=== PATIENT | male | born 1960 | race Caucasian/White ===

== ENCOUNTER 2020-07-20 08:01 | Emergency (ER) | payer MEDICARE, OTHER ==
[~2020-07-20] VITALS: Ht 175 cm; Wt 68.0 kg
--- NOTE | 2020-07-20 08:38 | ED General ---
General Chief Complaint: General Problems/Pain Stated Complaint: FOOT PAIN Nursing Triage Note: Patient brought to ER room 7 via wheelchair after falling in waiting room. PT states he is here today for chronic back and hip pain that has been present since March 2020. He has seen Dr Mcnally @ [facility] for this pain but is not scheduled for surgery. He states he heard good things about this hospital and wants this hospital to take care of him. Patient states he drove from [place] today. He states the pain in his left hip is worse today and he has difficulty walking because the right foot feels like the toes drop on it and it catches on the floor. He has had difficulty sleeping at night due to the pain. He has had 3 steriods shots in his back with no relief. Patient denies any additional injuries from the fall and denies striking his head. Nursing Sepsis Screen: No Definite Risk Source of Information: Patient Exam Limitations: No Limitations History of Present Illness Date Seen by Provider: July 20, 2020 Time Seen by Provider: 08:17 Initial Comments Here with complaint of chronic hip and back pain. Came to this hospital for second opinion after seeing Dr. Mcnally. States he has had injections in his back and those have not helped. Has necrosis of the left hip and pretty significant pain in the right hip. On the way in the door, he tripped over his right foot and fell to the floor on his hip. Does not think he broke anything and he is able to stand with assistance. His main concern was getting second opinion or getting something fixed here. His secondary concern is he is only prescribed tramadol 50 mg twice daily for pain. Denies bowel or bladder incontinence. Denies fever chills. Denies nausea or vomiting. Denies hitting his head with the fall or other injuries. Timing/Duration: Getting Worse, Other (Chronic for months) Severity: Moderate Associated Systoms: No Cough, No Fever/Chills, No Headaches, No Nausea/Vomiting, No Shortness of Air, No Weakness Allergies and Home Medications Allergies Coded Allergies: No Known Drug Allergies (Unverified , 07/20/20) Home Medications Gabapentin 600 Mg Tablet, 600 MG PO TID, (Reported) Last Action: New Order Tramadol HCl 50 Mg Tablet, 50 MG PO BID, (Reported) Last Action: New Order Patient Home Medication List Home Medication List Reviewed: Yes Review of Systems Review of Systems Constitutional: see HPI EENTM: No nose congestion, No throat pain Respiratory: No cough, No short of breath Cardiovascular: No chest pain, No edema Gastrointestinal: No abdominal pain, No nausea, No vomiting Genitourinary: no symptoms reported Musculoskeletal: see HPI, back pain, joint pain, muscle pain; No neck pain Skin: No see HPI, No change in color Psychiatric/Neurological: Numbness (Bilateral feet with left greater than right now, which is getting worse.), Weakness (Right foot weakness that has been chronic) All Other Systems Reviewed Negative Unless Noted: Yes Past Sjplmxa-Cxfxak-Jxojfs Hx Past Med/Social Hx: Reviewed Nursing Past Med/Soc Hx Patient Social History Alcohol Use: Regular Use Alcohol Beverage of Choice: Beer Drug of Choice: marijuana Smoking Status: Former Smoker Type Used: Cigarettes Former Smoker, Quit: July 08, 2020 Recent Infectious Disease Expo: No Recent Hopitalizations: No Seasonal Allergies Seasonal Allergies: No Past Medical History Surgeries: Yes (back and hip surgeries, hernia repair, lung surgery) Appendectomy, Orthopedic Respiratory: Yes COPD Cardiac: No Neurological: No Genitourinary: Yes (Prostate Cancer) Gastrointestinal: No Musculoskeletal: Yes Back Injury, Chronic Back Pain Endocrine: No HEENT: No Cancer: Yes Prostate Did You Recieve Any Treatments: Yes What Type of Treatment Did You: Radiation Psychosocial: No Integumentary: No Blood Disorders: No Family Medical History Reviewed Nursing Family Hx Physical Exam Vital Signs Vital Signs - First Documented 07/20/20 08:01 Temp 34.9 Pulse 80 Resp 18 B/P (MAP) 162/97 (118) Pulse Ox 97 O2 Delivery Room Air Capillary Refill : Less Than 3 Seconds Height, Weight, BMI Height: '" Weight: lbs. oz. kg; 22.00 BMI Method: General Appearance: Chronically ill, Mild Distress HEENT: PERRL/EOMI, Pharynx Normal Neck: Normal Inspection Respiratory: Lungs Clear, Normal Breath Sounds Cardiovascular: No Murmur, Tachycardia Gastrointestinal: Non Tender, Soft Back: Normal Inspection, No CVA Tenderness, No Vertebral Tenderness Extremity: No Calf Tenderness, No Pedal Edema, Pelvis Stable, Other (He is able to flex and extend at the hip and internal and external rotate. No limitations on range of motion although states that he does have pain chronically when moving both hips.) Neurologic/Psychiatric: Alert, Oriented x3 Skin: Normal Color, Warm/Dry Progress/Results/Core Measures Suspected Sepsis Recent Fever Within 48 Hours: No Infection Criteria Present: None New/Unexplained Altered Menta: No Sepsis Screen: No Definite Risk SIRS Temperature: Pulse: 80 Respiratory Rate: 18 Blood Pressure 162 /97 Mean: 118 Results/Orders Lab Results Laboratory Tests Test 07/20/20 08:10 Range/Units Glucometer 100 70-110 MG/DL My Orders Orders - MARVA SOTO MD Pelvis/Mychal Hips 5> Views (07/20/20 08:30) Ct Lumbar Spine Wo (07/20/20 08:30) Hydrocodone/Apap 5/325 Tablet (Lortab 5 (07/20/20 09:30) Ketorolac Injection (Toradol Injection) (07/20/20 10:19) Medications Given in ED Current Medications Medications Dose Ordered Sig/Bam Route Start Time Stop Time Status Last Admin Dose Admin Acetaminophen/ Hydrocodone Bitart 1 ea ONCE ONCE PO 07/20/20 09:30 07/20/20 09:31 DC 07/20/20 09:38 1 EA Vital Signs/I&O 07/20/20 08:01 Temp 34.9 Pulse 80 Resp 18 B/P (MAP) 162/97 (118) Pulse Ox 97 O2 Delivery Room Air Capillary Refill : Less Than 3 Seconds Blood Pressure Mean: 118 Point of Care Testing Finger Stick Blood Glucose: 100 Progress Note : Progress Note Seen and evaluated. IV, labs, CT lumbar spine, pelvis and bilateral hip x-rays ordered. Monitor patient. 1020: Toradol 60 mg IM ordered for persistent pain. CTA and x-rays reviewed. No acute findings require admission or transfer currently. Does have chronic problems that will need to be addressed and can be addressed with his primary care provider and orthopedic surgeon. He did receive hydrocodone 5/325 1 tablet p.o. States it is not helping the pain a lot right now but we will add the Toradol. Discharged home with return precautions. Patient verbalized understanding of instructions and agreement with plan. Diagnostic Imaging Diagonstic Imaging: CT Plain Films/CT/US/NM/MRI: other Comments NAME: JOSH SEBASTIAN [facility] REC#: [id number] PT STATUS: REG ER : 1960 PHYSICIAN: MARVA SOTO MD ADMIT DATE: 07/20/20/ER Draft Date of Exam:07/20/20 CT LUMBAR SPINE WO PROCEDURE: CT lumbar spine without contrast. TECHNIQUE: Multiple contiguous axial images were obtained through the lumbar spine without the use of intravenous contrast. Sagittal and coronal reformations were then performed. Auto Exposure Controls were utilized during the CT exam to meet ALARA standards for radiation dose reduction. INDICATION: Fall, low back pain COMPARISON: None FINDINGS: Alignment of the lumbar spine appears normal. There is a compression deformity of L1 with about 50% height loss anteriorly and no retropulsion. Given the matching contour along the inferior endplate of T12 this is thought to be a chronic finding. There is marked facet arthropathy in the lower lumbar spine. Disc spaces are generally well preserved for age. This does appear to cause foraminal stenosis at L4-L5 and L5-S1 on the right, as well as stenosis from L2-L3 down to L5-S1 on the left. No bony fragments or hyperdense fluid collections are identified. There are bridging osteophytes of the sacroiliac joints bilaterally. The urinary bladder is partially seen but appears distended. IMPRESSION: 1. Compression deformity of the L1 vertebral body with about 50% height loss. This appears chronic rather than acute. 2. Degenerative changes in the lumbar spine causing multilevel foraminal stenosis. Dictated on workstation # [id number] Dict: 07/20/20 0855 Trans: 07/20/20 0908 JIM [id number] Interpreted by: ELIAZAR GUZMAN MD Electronically signed by: Diagonstic Imaging: Xray Plain Films/CT/US/NM/MRI: pelvis, hip Comments [facility] [place] NAME: JOSH SEBASTIAN Julian [facility] REC#: [id number] PT STATUS: REG ER : 1960 PHYSICIAN: MARVA SOTO MD ADMIT DATE: 07/20/20/ER Draft Date of Exam:07/20/20 PELVIS/MYCHAL HIPS 5> VIEWS History: Pelvic pain TECHNIQUE: Frontal view of the pelvis. Frontal and lateral views of the bilateral hips COMPARISON: None FINDINGS: There is diffuse osteopenia. There is internal fixation of the proximal right femur without hardware complication seen. There are moderate degenerative changes in the right hip and mild degenerative changes in the left hip. The femoral heads are well-seated in the acetabula bilaterally. Multiple phleboliths are noted. There are degenerative changes in the lower lumbar spine. There is some loss of the sacroiliac joint space, thought to represent bridging osteophytes. IMPRESSION: 1. No acute osseous abnormality is seen in the pelvis or bilateral hips. 2. Degenerative changes in the bilateral hip joints. 3. Internal fixation of the proximal right femur with no hardware complication seen. Dictated on workstation # [id number] Dict: 07/20/20 0900 Trans: 07/20/20 0913 [facility] [id number] Interpreted by: ELIAZAR GUZMAN MD Electronically signed by: Departure Impression Primary Impression: Degenerative joint disease of both hips Qualified Codes: M16.0 - Bilateral primary osteoarthritis of hip Additional Impression: Degenerative joint disease (DJD) of lumbar spine Qualified Codes: M47.816 - Spondylosis without myelopathy or radiculopathy, lumbar region Disposition: HOME, SELF-CARE Condition: Stable Departure-Patient Inst. Decision time for Depature: 10:27 Referrals: NETTIE MCNALLY MD Patient Instructions: Low Back Pain (DC), Degenerative Disc Disease (DC), Osteoarthritis (DC) Add. Discharge Instructions: All discharge instructions reviewed with patient and/or family. Voiced understanding. Continue ibuprofen 40 mg every 8 hours as needed for pain. Take other pain medications as prescribed. Follow-up with Dr. Mcnally for recheck and further evaluation. Call his office on Wednesday morning for appointment. Return for worse pain, weakness, numbness between your legs, difficulty with walking or going to the bathroom or other concerns as needed. Scripts Hydrocodone Bit/Acetaminophen (HYDROcodone/APAP 5 MG/325 MG TAB) 1 Tab Tab 1 TAB PO Q6H for Pain, #8 TAB 0 Refills Prov: MARVA SOTO MD 07/20/20 MARVA SOTO MD July 20, 2020 08:38
[2020-07-20] MEDS ORDERED: GBPN600T PO (08:43)
[2020-07-20] MEDS ORDERED: TRM50T PO (08:43)
--- NOTE | 2020-07-20 09:08 | Diagnostic Imaging Report ---
PROCEDURE: CT lumbar spine without contrast. TECHNIQUE: Multiple contiguous axial images were obtained through the lumbar spine without the use of intravenous contrast. Sagittal and coronal reformations were then performed. Auto Exposure Controls were utilized during the CT exam to meet ALARA standards for radiation dose reduction. INDICATION: Fall, low back pain COMPARISON: None FINDINGS: Alignment of the lumbar spine appears normal. There is a compression deformity of L1 with about 50% height loss anteriorly and no retropulsion. Given the matching contour along the inferior endplate of T12 this is thought to be a chronic finding. There is marked facet arthropathy in the lower lumbar spine. Disc spaces are generally well preserved for age. This does appear to cause foraminal stenosis at L4-L5 and L5-S1 on the right, as well as stenosis from L2-L3 down to L5-S1 on the left. No bony fragments or hyperdense fluid collections are identified. There are bridging osteophytes of the sacroiliac joints bilaterally. The urinary bladder is partially seen but appears distended. IMPRESSION: 1. Compression deformity of the L1 vertebral body with about 50% height loss. This appears chronic rather than acute. 2. Degenerative changes in the lumbar spine causing multilevel foraminal stenosis. Dictated by: Dictated on workstation # [id number]
--- NOTE | 2020-07-20 09:13 | Diagnostic Imaging Report ---
History: Pelvic pain TECHNIQUE: Frontal view of the pelvis. Frontal and lateral views of the bilateral hips COMPARISON: None FINDINGS: There is diffuse osteopenia. There is internal fixation of the proximal right femur without hardware complication seen. There are moderate degenerative changes in the right hip and mild degenerative changes in the left hip. The femoral heads are well-seated in the acetabula bilaterally. Multiple phleboliths are noted. There are degenerative changes in the lower lumbar spine. There is some loss of the sacroiliac joint space, thought to represent bridging osteophytes. IMPRESSION: 1. No acute osseous abnormality is seen in the pelvis or bilateral hips. 2. Degenerative changes in the bilateral hip joints. 3. Internal fixation of the proximal right femur with no hardware complication seen. Dictated by: Dictated on workstation # [id number]
[2020-07-20] MEDS ORDERED: HYDROcodone/APAP 5 MG/325 MG (LORTAB) TAB PO ONE (09:30)
[2020-07-20] MEDS ORDERED: KETOROLAC 60 MG/2 ML VIAL IM STA (10:19)
[2020-07-20] MEDS ORDERED: ACHD5005 PO (10:29)
[2020-07-20 10:53] VITALS: BP 141/80
== END 2020-07-20 10:46 | disposition home or self-care (01) ==
LOC: ER 08:04
DX: M47.816 Spondylosis without myelopathy or radiculopathy, lumbar region (principal); M16.0 Bilateral primary osteoarthritis of hip; G89.29 Other chronic pain; J44.9 Chronic obstructive pulmonary disease, unspecified; Z87.891 Personal history of nicotine dependence; Z79.891 Long term (current) use of opiate analgesic; W01.0XXA Fall on same level from slipping, tripping and stumbling without subsequent striking against object, initial encounter; Y92.238 Other place in hospital as the place of occurrence of the external cause
CPT/HCPCS: 72131; 73523; 82947